=== PATIENT | female | born 1980 | race Caucasian/White ===

== ENCOUNTER 2016-12-12 06:16 | Inpatient (IN) | payer OTHER ==
[2016-12-12] MEDS ORDERED: TERBUTALINE SULFATE 1 MG/ML VIAL IV PRN (06:27)
[2016-12-12] MEDS ORDERED: OLIVE OIL 118 ML BTL MISC PRN (06:27)
[2016-12-12] MEDS ORDERED: LR 1,000 ML IV PRN (06:27)
[2016-12-12] MEDS ORDERED: OXYTOCIN/RINGERS LACTATE 1,000 ML IV PRN (06:27)
[2016-12-12] MEDS ORDERED: EPSOM SALT 454 GM TP PRN (06:27)
[2016-12-12] MEDS ORDERED: LIDOCAINE 1% 30 ML SDV SC PRN (06:27)
[2016-12-12] MEDS ORDERED: AMPICILLIN SODIUM 2 GM in NS 100 ML IV ONE (06:27)
[2016-12-12] MEDS ORDERED: LIDOCAINE 1% 30 ML SDV ONE (06:38)
[2016-12-12] MEDS ORDERED: OXYTOCIN 10 UNIT/ML VIAL ONE (06:39)
[2016-12-12] MEDS ORDERED: TERBUTALINE SULFATE 1 MG/ML VIAL ONE (06:39)
[2016-12-12] MEDS ORDERED: OLIVE OIL 118 ML BTL ONE (06:39)
[2016-12-12] MEDS ORDERED: AMMONIA AROMATIC 1 EACH AMP IH ONE (06:39)
[2016-12-12] MEDS ORDERED: MISOPROSTOL 200 MCG TAB ONE (06:39)
[2016-12-12 06:45] LABS: % IMMATURE GRANULYOCYTES 0.5 % (0.0-1.1); ABSOLUTE IMMATURE GRANULOCYTES 0.07 10^3/uL (0.00-0.10); ADD DIFF? NO; ADD MORPH? NO; ADD SCAN? NO; ATYPICAL LYMPHOCYTE FLAG 10 (0-99); FRAGMENT RBC FLAG 0 (0-99); HEMOGLOBIN 13.5 g/dL (12.6-16.3); LEFT SHIFT FLG 10 (0-99); LIPEMIA HEMOLYSIS FLAG 90 (0-99); MEAN CELL HEMOGLOBIN 32.9 pg (27.9-34.1); MEAN CELL HEMOGLOBIN CONCENTR. 35.5 g/dL (32.4-36.7); MEAN CELL VOLUME 92.7 fL (81.5-99.8); MEAN PLATELET VOLUME 10.1 fL (8.7-11.7); PLATELET CLUMPS FLAG 0 (0-99); PLATELET COUNT 280 10^3/uL (150-400); RED CELL DISTRIBUTION WIDTH 12.5 % (11.5-15.2)
[2016-12-12] MEDS: IBUPROFEN 600 MG TAB PO PRN ×3 (08:33→21:04)
[2016-12-12] MEDS ORDERED: SIMETHICONE 80 MG TAB CHEW PO PRN (09:19)
[2016-12-12] MEDS ORDERED: DOCUSATE SODIUM 100 MG CAP PO PRN (09:19)
[2016-12-12] MEDS ORDERED: HYDROCORTISONE 0.5% CREAM TP PRN (09:19)
[2016-12-12] MEDS ORDERED: ACETAMINOPHEN 325 MG TAB PO PRN (09:19)
--- NOTE | 2016-12-12 09:23 | OBPROC ---
- Labor and Delivery Onset of Contractions Date: 12/12/16 Onset of Contractions Time: 02:00 (per pt) Onset of Contractions Type: Spontaneous Rupture of Membranes Date: 12/12/16 Rupture of Membranes Time: 07:09 Rupture of Membranes Type: Spontaneous Amniotic Fluid Color: Clear Dilation Complete Time: 07:22 Delivery Type: Spontaneous Placenta Delivery Date: 12/12/16 Placenta Delivery Time: 07:55 Episiotomy/Laceration: 1st Degree Repair: 3-0, Vicryl (x1) EBL: 250 Complications: None - Medications Labor Augmentation/Induction Meds Used: None Anesthesia: Other (Specify) (nitrous oxide) - Info A Delivery Date: 12/12/16 Delivery Time: 07:52 (del in hands/knees position) Sex of Infant: Male Score (1 Min): 8 Score (5 Min): 9
[2016-12-12] MEDS ORDERED: OXYTOCIN/RINGERS LACTATE 1,000 ML IV SCH (09:30)
--- NOTE | 2016-12-12 09:51 | GHP ---
[f rep st] PREOP HISTORY AND PHYSICAL DATE OF ADMISSION: 12/12/2016 ADMITTING DIAGNOSIS: A 35-year-old, 4, para 2-0-1-2 at 40 weeks today presenting in active labor with contractions every 2-3 minutes. HISTORY OF PRESENT COMPLAINT: The patient arrived at 6:20 this morning, states contractions began shortly after 2:00 a.m., still intact. Contractions became more painful this morning at 5:45, decided to come to hospital. The patient has received care with [facility] since 1st trimester of . Previous vaginal delivery followed by secondary to breech. The patient desires TOLAC at this time. GBS is positive. PAST MEDICAL HISTORY: IBS, constipation, anxiety, and depression in college, not on medications. PAST SURGICAL HISTORY: 2014, wisdom teeth removal at age 18. MEDICATIONS: vitamin, folic acid, Tums. ALLERGIES: Levaquin causes hives and difficulty breathing. 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 FAMILY HISTORY: Noncontributory. 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 Denies alcohol, tobacco or drug use. OB HISTORY: Significant for anxiety, history of previous , desires TOLAC. 02/2012 early SAB. 12/2012, vaginal delivery, female, full term, 6 pounds 7 ounces. Complicated by anxiety. 11/2014, due to breech lie, male, full-term, 7 pounds 10 ounces. Complicated by a marginal cord insertion and, again, anxiety. Both pregnancies was complicated by a low milk supply. LABS: A positive, antibody negative, GBS positive, HIV negative, hepatitis B negative, syphillis negative, rubella immune, gonorrhea and chlamydia negative, QUAD/AFP negative, 1 hour GTT within normal limits. PHYSICAL EXAM: VITAL SIGNS: Stable. GENERAL APPEARANCE: Alert and oriented x3. Heart rate regular. ABDOMEN: Gravid, nontender. VAGINAL: Per RN, SVE upon patient arrival was 7 cm. position cephalic. heart tracing category 1. heart tones 150s, moderate variability, early decels, contractions every 2 minutes. ASSESSMENT: A 35-year-old, 4, para 2-0-1-2 at 40 weeks 0 days with previous presents in active labor at term. Desires vaginal after (). PLAN: 1. Nitrous oxide for pain. 2. Maternal- monitoring. 3. GBS prophylaxis per protocol. 4. Expectant mgmt. 5. Anticipate normal spontaneous vaginal delivery. /[id number]/MODL MTDD
[2016-12-12] MEDS: HYDROCODONE/APAP 5/325 TAB PO PRN ×3 (09:53→21:04)
[2016-12-12 10:11] VITALS: RESP 16
[2016-12-12] MEDS: AMPICILLIN SODIUM 1 GM in NS 100 ML IV SCH ×3 (13:23→19:32)
[2016-12-12 21:32] VITALS: O2SAT 97
[2016-12-13] MEDS: AMPICILLIN SODIUM 1 GM in NS 100 ML IV SCH ×3 (00:03→11:02)
[2016-12-13] MEDS: IBUPROFEN 600 MG TAB PO PRN (05:12)
[2016-12-13] MEDS ORDERED: AMPICILLIN SODIUM 1 GM in NS 100 ML IV SCH (09:30)
--- NOTE | 2016-12-13 10:25 | SOAPPROG ---
SOAP Progress Note Assessment/Plan: Assessment: pain well managed vs wnl [id number] scant rubra lochia perineum approximated voiding without difficulty Plan:discharge to home with instruction discussed , ss infection, pericare, rest, mood, pain management contraception, return 4 weeks and 6 weeks , pelvic rest, exercise verbalized understanding of poc 12/13/16 10:22 Subjective: Denie difficultys Objective: Vital Signs Temp Pulse Resp BP Pulse Ox 37.3 C 82 16 124/74 H 97 12/12/16 20:00 12/12/16 20:00 12/12/16 20:00 12/12/16 20:00 12/12/16 20:00 Laboratory Results 12/12/16 06:35 12/12/16 12/13/16 12/14/16 05:59 05:59 05:59 Intake Total 1000 Output Total 250 Balance 750 Physical Exam - Physical Exam General Appearance: WD/WN, alert, no apparent distress Cardiac/Chest: regular rate, rhythm Pelvic Exam: vaginal bleeding (scant rubra lochia) Skin: normal color, warm/dry Extremities: normal range of motion, Rito's sign (negativebilaterally, dtrs1+ bilaterally) Neuro/Psych: no motor/sensory deficits, alert, normal mood/affect, oriented x 3 ICD10 Worksheet Patient Problems: Problems Problem Status Onset , delivered Acute
[2016-12-13] MEDS: HYDROCODONE/APAP 5/325 TAB PO PRN (12:27)
[2016-12-13 13:20] VITALS: BP 97/61; PULSE 65; TEMP 98.1
== END 2016-12-13 18:42 | disposition home or self-care (01) | DRG 775 ==
LOC: OBSVTOIN 06:16 → FLD 06:16 → FOB 10:09
PROVIDERS: ADMIT Obstetrics & Gynecology; ATTEND Obstetrics & Gynecology
DX: O48.0 Post-term pregnancy (principal); O70.0 First degree perineal laceration during delivery; O99.820 Streptococcus B carrier state complicating pregnancy; O34.219 Maternal care for unspecified type scar from previous cesarean delivery; Z3A.40 40 weeks gestation of pregnancy; Z37.0 Single live birth
CPT/HCPCS: J0290; J2590; J3105